=== PATIENT | female | born 1980 | race Caucasian/White ===

== ENCOUNTER 2017-11-06 14:48 | Outpatient (CLI) | payer OTHER | END 2017-11-06 14:49 | disposition home or self-care (01) | LOC: CTENTCT 14:48 | PROVIDERS: ATTEND Otolaryngology Plastic Surgery within the Head & Neck | DX: J32.8 Other chronic sinusitis (principal) | CPT/HCPCS: 70486 ==

== ENCOUNTER 2021-01-23 15:24 | Outpatient (CLI) | payer BC | END 2021-01-23 15:25 | disposition home or self-care (01) | LOC: CTENTCT 15:24 | PROVIDERS: ATTEND Otolaryngology Plastic Surgery within the Head & Neck | DX: J32.8 Other chronic sinusitis (principal) | CPT/HCPCS: 70486 ==

== ENCOUNTER 2023-07-10 08:14 | Outpatient (CLI) | payer BC | END 2023-07-10 08:15 | disposition home or self-care (01) | LOC: ULT 08:14 | PROVIDERS: ATTEND Internal Medicine Gastroenterology | DX: R10.11 Right upper quadrant pain (principal); N28.89 Other specified disorders of kidney and ureter; Z90.49 Acquired absence of other specified parts of digestive tract | CPT/HCPCS: 76705 ==

== ENCOUNTER 2024-10-22 08:01 | Outpatient (CLI) | payer BC | END 2024-10-22 08:02 | disposition home or self-care (01) | LOC: BICRAD 08:01 | PROVIDERS: ATTEND Physician Assistant Medical | DX: K59.09 Other constipation (principal); M41.9 Scoliosis, unspecified; Z97.5 Presence of (intrauterine) contraceptive device | CPT/HCPCS: 74018 ==

== ENCOUNTER 2024-10-25 14:24 | Outpatient (CLI) | payer BC | END 2024-10-25 14:25 | disposition home or self-care (01) | LOC: SCSRAD 14:24 | PROVIDERS: ATTEND Physician Assistant Medical | DX: K59.09 Other constipation (principal); Z90.49 Acquired absence of other specified parts of digestive tract | CPT/HCPCS: 74018 ==